=== PATIENT | female | born 1960 | race Caucasian/White ===

== ENCOUNTER → 2023-05-24 11:41 | Outpatient (REF) | payer MEDICARE, SELFPAY ==
[2023-05-24 12:12] LABS: % Basophils 0.5 % (0-2); % Eosinophils 1.2 % (0-6); % Immature Granulocytes 0.8 % (0-0.5); % Lymphocytes 19.9 % (20.5-51.1); % Monocytes 9.2 % (1.7-9.3); % Neutrophils 68.4 % (42.2-75.2); Absolute Eosinophils 0.1 10^3/uL (0-0.7); Absolute Immature Granulocytes 0.1 10^3/uL (0-0.05); Absolute Lymphocytes 1.5 10^3/uL (1.2-3.4); Absolute Monocytes 0.7 10^3/uL (0.1-0.6); Absolute Neutrophils 5.1 10^3/uL (1.4-6.5); Hematocrit 40.2 % (37.0-47.0); Hemoglobin 13.5 g/dL (12.0-16.0); Mean Corp Hgb Conc. 33.6 g/dL (33.0-37.0); Mean Corpuscular Hgb 30.4 pg (27.0-31.0); Mean Corpuscular Volume 90.5 fL (81.0-99.0); Mean Platelet Volume 10.4 fL (7.4-10.4); Nucleated Red Blood Cells % 0 %; Platelet Count 304 10^3/uL (130-400); Red Blood Cell Count 4.44 10^6/uL (4.20-5.40); Red Cell Dist. Width 12.3 % (11.5-14.5); White Blood Cell Count 7.5 10^3/uL (4.8-10.8)
[2023-05-24 12:39] LABS: ALT (SGPT) 20 U/L (0-35); AST (SGOT) 24 U/L (14-36); Albumin 4.2 g/dl (3.5-5.0); Alkaline Phosphatase 82 U/L (38-126); Amylase 60 U/L (30-110); Blood Urea Nitrogen 11 mg/dl (7-17); Calcium 9.7 mg/dl (8.4-10.2); Carbon Dioxide 31 mmol/L (22-30); Chloride 105 mmol/L (98-107); Glucose 64 mg/dl (70-99); Lipase 114 U/L (23-300); Potassium 4.3 mmol/L (3.5-5.1); Sodium 139 mmol/L (135-145); Total Bilirubin 0.5 mg/dl (0.2-1.3); Total Protein 6.9 g/dl (6.3-8.2); eGFR > 60.00
== END ==
LOC: REG 11:41
PROVIDERS: ATTENDING PHYSICIAN Nurse Practitioner Adult Health
DX: R10.11 Right upper quadrant pain (principal)
CPT/HCPCS: 36415; 80053; 82150; 83690; 85025

== ENCOUNTER → 2023-05-30 07:44 | Outpatient (REF) | payer MEDICARE, SELFPAY | LOC: RAD 07:44 | PROVIDERS: ATTENDING PHYSICIAN Nurse Practitioner Adult Health | DX: R10.11 Right upper quadrant pain (principal); Z90.49 Acquired absence of other specified parts of digestive tract | CPT/HCPCS: 76700 ==

== ENCOUNTER → 2023-07-20 09:19 | Outpatient (REF) | payer MEDICARE, SELFPAY | LOC: DHCBS MAIN 09:19 | PROVIDERS: ATTENDING PHYSICIAN Internal Medicine Cardiovascular Disease; FAMILY PHYSICIAN Nurse Practitioner Adult Health | DX: I31.39 Other pericardial effusion (noninflammatory) (principal) | CPT/HCPCS: 93306 ==

== ENCOUNTER 2023-09-10 10:09 | Emergency (ER) | payer MEDICARE, SELFPAY ==
[2023-09-10 10:11] VITALS: BP 152/85
[2023-09-10 11:02] VITALS: BMI 25.5
[2023-09-10 11:08] VITALS: BP 113/74
[2023-09-10 11:18] LABS: % Basophils 0.4 % (0-2); % Eosinophils 0.7 % (0-6); % Immature Granulocytes 0.8 % (0-0.5); % Lymphocytes 13.8 % (20.5-51.1); % Monocytes 6.7 % (1.7-9.3); % Neutrophils 77.6 % (42.2-75.2); Absolute Eosinophils 0.1 10^3/uL (0-0.7); Absolute Immature Granulocytes 0.1 10^3/uL (0-0.05); Absolute Lymphocytes 1.5 10^3/uL (1.2-3.4); Absolute Monocytes 0.7 10^3/uL (0.1-0.6); Absolute Neutrophils 8.4 10^3/uL (1.4-6.5); Hematocrit 38.7 % (37.0-47.0); Hemoglobin 13.6 g/dL (12.0-16.0); Mean Corp Hgb Conc. 35.1 g/dL (33.0-37.0); Mean Corpuscular Hgb 30.5 pg (27.0-31.0); Mean Corpuscular Volume 86.8 fL (81.0-99.0); Mean Platelet Volume 10.2 fL (7.4-10.4); Nucleated Red Blood Cells % 0 %; Platelet Count 291 10^3/uL (130-400); Red Blood Cell Count 4.46 10^6/uL (4.20-5.40); Red Cell Dist. Width 12.4 % (11.5-14.5); White Blood Cell Count 10.8 10^3/uL (4.8-10.8)
[2023-09-10 11:32] LABS: ALT (SGPT) 15 U/L (0-35); AST (SGOT) 20 U/L (14-36); Albumin 4.3 g/dl (3.5-5.0); Alkaline Phosphatase 76 U/L (38-126); Blood Urea Nitrogen 13 mg/dl (7-17); Carbon Dioxide 23 mmol/L (22-30); Chloride 108 mmol/L (98-107); Estimated Creatinine Clearance 46 ml/min; Glucose 105 mg/dl (70-99); Potassium 4.4 mmol/L (3.5-5.1); Sodium 141 mmol/L (135-145); Total Bilirubin 0.3 mg/dl (0.2-1.3); Total Protein 7.3 g/dl (6.3-8.2); eGFR > 60.00
[2023-09-10 11:36] LABS: C-Reactive Protein < 5.00 mg/L (0.0-10.00)
--- NOTE | 2023-09-10 12:00 | ED.GENMED ---
History of Present Illness
General
Chief Complaint: Skin Problem
Time Seen by Provider: 09/10/23 10:45
Travel History
Have you had any contact with someone who has COVID-19?: No
Do you have any symptoms of coronavirus? Fever > 100 degrees, chills, cough, shortness of breath, sore throat, loss of taste or smell, muscle aches, or headache?: No
History of Present Illness
History of Present Illness:
63-year-old female with history of COPD, hypertension, and hyperlipidemia presents to the emergency department for evaluation of painful nodular lesions to the second MCP joint bilaterally for the past 3 to 4 days. Developed a fever this morning.
Has been on Bactrim for 2 days after seeing urgent care but feels symptoms are worsening. She is concerned that the lesions developed after doing yard work with dirty gloves.
Past History
Past History
ED Past Medical History: Cancer (Non-small cell lung cancer), COPD, GERD, HTN, Hypercholesterolemia, Psychiatric (Anxiety and depression) and Other (: Polyps, IBS); Negative IDDM or NIDDM
ED Past Surgical History: Cholecystectomy
Social History
Tobacco: Former smoker
Family History
Family History: CAD
Review of Systems
Review of Systems
Allergies reviewed?: Yes
All Other Systems: ROS reviewed and negative except as documented in HPI and ROS
Phy Exam
Physical Exam
Physical Exam:
GEN: Well appearing, NAD, WDWN
HEENT: Oral mucosa moist, no scleral icterus
Cardiac: Regular rate
Lung: No respiratory distress, no tachypnea
MSK: No gross deformity or injuries
Skin: Good color, no pallor or jaundice. 0.5 cm nodular erythematous lesions to the inner aspects of the second MCP joints bilaterally. No limitation to range of motion. Mild erythema adjacent to the nodular lesions with no hand swelling
Neuro: AO x3, moves all extremities freely
Psych: Calm, cooperative
Course
Orders/Labs/Results
Orders:
Orders
09/10/23 11:06
CRP [C-Reactive Protein] Urgent
Complete Blood Count/With Diff Urgent
Comprehensive Metabolic Panel Urgent
Blood Culture Q30M
LEE Source: Blood/Venous
Specimen Description:
09/10/23 11:07
Blood Culture Q30M
LEE Source: Blood/Venous
Specimen Description:
Abnormal Lab Results
09/10/23
11:06
Abs Immat Gran (auto) 0.1 H 10^3/uL
(0-0.05)
Absolute Neuts (auto) 8.4 H 10^3/uL
(1.4-6.5)
Absolute Monos (auto) 0.7 H 10^3/uL
(0.1-0.6)
Immature Gran % 0.8 H %
(0-0.5)
Neutrophils % 77.6 H %
(42.2-75.2)
Lymphocytes % 13.8 L %
(20.5-51.1)
Chloride 108 H mmol/L
(98-107)
Glucose 105 H mg/dl
(70-99)
09/10/23 11:06
09/10/23 11:06
Vital Signs
Initial and Last Documented VS:
Initial Vital Signs
Temp Pulse Resp BP Pulse Ox
100.2 F 103 18 152/85 98
09/10/23 10:11 09/10/23 10:11 09/10/23 10:11 09/10/23 10:11 09/10/23 10:11
Last Documented Vital Signs
Temp Pulse Resp BP Pulse Ox
100.2 F 71 20 113/74 98
09/10/23 10:11 09/10/23 11:45 09/10/23 11:45 09/10/23 11:08 09/10/23 10:11
MDM/Problems Addressed
MDM/Problems Addressed:
Unclear etiology, they do not look overtly infected however cannot discount the way of the fever. Would recommend continued antibiotics. May be some correlation to the patient's vague underlying autoimmune history, will cover with steroid
medications and recommend outpatient primary care follow-up. Labs are reassuring
*Critical Care Note
Total Time (30-74mins, 75-104mins- exclusive of procedures): Not Applicable
ED Attending Note
-
Portions of this chart may have been created with voice recognition software.� Occasional wrong word or��sound alike� substitutions may have occurred due to the inherent limitations of voice recognition software.
Discharge Plan
Departure
Patient Disposition: Home (Routine Discharge)
Date of Disposition: 09/10/23
Time of Disposition: 12:01
Patient with high blood pressure during this ER visit?: No
Discharge Problem:
Erythematous skin nodule
Instructions: Erythema nodosum
Prescriptions:
New
methylprednisolone [Medrol (Denzel)] 4 mg tablets,dose pack
See Rx Instructions .ROUTE .COMPLEX Qty: 21 0RF
Rx Instructions:
orally per package directions
No Action
pravastatin 40 MG tablet
40 mg PO HS
alprazolam 0.5 MG tablet
0.5 mg PO HS
acetaminophen [Acetaminophen Extra Strength] 500 MG tablet
1,000 mg PO BID PRN (Reason: mild pain)
lansoprazole 30 MG tablet,disintegrat, delay rel
30 mg PO DAILY
venlafaxine 225 MG tablet extended release 24hr
225 mg PO DAILY
Prolia 60 MG/ML syringe
60 mg SQ [id number]
metoprolol succinate [Toprol XL] 25 mg tablet extended release 24 hr
25 mg PO DAILY Qty: 30 2RF
cyanocobalamin (vitamin B-12) [Vitamin B-12] 100 mcg Tablet
100 mcg PO DAILY
Metamucil Packet
1 packet PO Q48H
zonisamide 100 mg Capsule
100 mg PO HS
albuterol sulfate 90 mcg/actuation HFA aerosol inhaler
2 puff INHALATION Q4HPRN PRN (Reason: shortness of breath)
cholecalciferol (vitamin D3) [Vitamin D3] 25 mcg (1,000 unit) Tablet
25 mcg PO DAILY
Referrals:
Eloisa Rodriguez CRNP [Family Provider] -
Interventions
Interventions:
*Risk Screen - Suicide Last Done: 09/10/23 10:13
*General Assessment Last Done: 09/10/23 10:11
*Neglect/Abuse Screening Last Done: 09/10/23 10:11
ED- Fall Risk Assessment Last Done: 09/10/23 11:02
*ED COVID-19 Vaccine History Last Done: 09/10/23 10:11
*Nursing Disposition Last Done: 09/10/23 12:24
ED-Skin Assessment Last Done: 09/10/23 11:02
Discharge Date and Time
Discharge Date/Time: 09/10/23 12:25
Print Language: [place]
== END 2023-09-10 12:25 | disposition home or self-care (01) ==
LOC: EMR 10:09
PROVIDERS: Physician Assistant; EMERGENCY PHYSICIAN Emergency Medicine; FAMILY PHYSICIAN Nurse Practitioner Adult Health
DX: L53.8 Other specified erythematous conditions (principal); R22.9 Localized swelling, mass and lump, unspecified; J44.9 Chronic obstructive pulmonary disease, unspecified; I10 Essential (primary) hypertension; E78.00 Pure hypercholesterolemia, unspecified; F41.8 Other specified anxiety disorders; K21.9 Gastro-esophageal reflux disease without esophagitis; K58.9 Irritable bowel syndrome, unspecified; Z82.49 Family history of ischemic heart disease and other diseases of the circulatory system; Z87.891 Personal history of nicotine dependence; Z90.49 Acquired absence of other specified parts of digestive tract
CPT/HCPCS: 99283; 80053; 85025; 86140; 87040

== ENCOUNTER → 2023-11-26 09:42 | Outpatient (REF) | payer MEDICARE, SELFPAY | LOC: HWRAD 09:42 | PROVIDERS: ATTENDING PHYSICIAN Internal Medicine Critical Care Medicine; FAMILY PHYSICIAN Nurse Practitioner Adult Health | DX: R91.8 Other nonspecific abnormal finding of lung field (principal); J43.2 Centrilobular emphysema; C34.32 Malignant neoplasm of lower lobe, left bronchus or lung; R91.1 Solitary pulmonary nodule | CPT/HCPCS: 71250 ==

== ENCOUNTER → 2023-12-19 12:03 | Outpatient (REF) | payer MEDICARE, SELFPAY ==
[2023-12-29 08:40] LABS: HPV, High Risk Not Detected; HPV, High Risk Source Anal
== END ==
LOC: CLAB 12:03
PROVIDERS: ATTENDING PHYSICIAN Physician Assistant
DX: Z87.410 Personal history of cervical dysplasia (principal); Z72.52 High risk homosexual behavior
CPT/HCPCS: 87624; 88112

== ENCOUNTER → 2023-12-21 08:02 | Outpatient (REF) | payer MEDICARE, SELFPAY | LOC: WDC 08:02 | PROVIDERS: ATTENDING PHYSICIAN Nurse Practitioner Adult Health | DX: Z12.31 Encounter for screening mammogram for malignant neoplasm of breast (principal) | CPT/HCPCS: 77063; 77067 ==

== ENCOUNTER → 2024-11-24 08:31 | Outpatient (REF) | payer MEDICARE, SELFPAY | LOC: HWRAD 08:31 | PROVIDERS: ATTENDING PHYSICIAN Internal Medicine Critical Care Medicine; FAMILY PHYSICIAN Nurse Practitioner Adult Health | DX: C34.32 Malignant neoplasm of lower lobe, left bronchus or lung (principal) | CPT/HCPCS: 71250 ==

== ENCOUNTER → 2024-12-24 08:11 | Outpatient (REF) | payer MEDICARE, SELFPAY | LOC: WDC 08:11 | PROVIDERS: ATTENDING PHYSICIAN Nurse Practitioner Adult Health | DX: Z12.31 Encounter for screening mammogram for malignant neoplasm of breast (principal) | CPT/HCPCS: 77063; 77067 ==

== ENCOUNTER → 2025-01-01 08:23 | Outpatient (REF) | payer MEDICARE, SELFPAY | LOC: WDC 08:23 | PROVIDERS: ATTENDING PHYSICIAN Nurse Practitioner Adult Health | DX: R92.8 Other abnormal and inconclusive findings on diagnostic imaging of breast (principal) | CPT/HCPCS: 76642 ==